=== PATIENT | female | born 2000 | race Two or more races ===

== ENCOUNTER 2019-04-16 20:54 | Emergency (ER) | payer BC ==
[2019-04-16] MEDS ORDERED: ACETAMINOPHEN 325 MG TABLET PO ONE (21:15)
[2019-04-16] MEDS ORDERED: CEFTRIAXONE 1 GM/D5W RTU 1 GM/50 ML RTUPB IV ONE ×2 (21:15→22:17)
[2019-04-16] MEDS ORDERED: NORMAL SALINE 1000 ML 1,000 ML IV ONE (21:15)
[2019-04-16] MEDS ORDERED: KETOROLAC TROMETHAMINE INJ/PF 30 MG/1 ML SDV IV ONE (21:17)
--- NOTE | 2019-04-16 21:29 | ER Document Report ---
ED Skin Rash/Insect Bite/Abscs - General Chief Complaint: Cyst Stated Complaint: PAINFUL CYST Time Seen by Provider: 04/16/19 21:18 Mode of Arrival: Ambulatory Information source: Patient TRAVEL OUTSIDE OF THE [place] IN LAST 30 DAYS: No - HPI Patient complains to provider of: Tender/swollen area Notes: Patient here with complaints of tender swollen area to the top of her gluteal cleft. She had a pilonidal cyst that was surgically removed approximately 2 years ago. She states that it has grown back. States that a few days ago started noticing some swelling to the area, yesterday it started to become painful and today became more painful. The pain is constant, moderate to severe, worse with touching the area or lying on her back. She also states that she started developing a fever yesterday. No nausea, vomiting, diarrhea. No difficulty breathing or swallowing. No chest pain or shortness of breath. No other rashes. No abdominal pain. She does complain of feeling a little dizzy at times. No syncope. No dysuria or hematuria. No other complaints at this time. - Related Data Allergies/Adverse Reactions: No Known Allergies Allergy (Unverified 04/16/19 21:47) Past Medical History - Social History Smoking Status: Unknown if Ever Smoked Family History: Reviewed & Not Pertinent Review of Systems - Review of Systems -: Yes All other systems reviewed and negative Physical Exam - Vital signs Vitals: Temp Pulse Resp BP Pulse Ox 101.7 F H 115 H 20 116/69 98 04/16/19 20:59 04/16/19 20:59 04/16/19 20:59 04/16/19 20:59 04/16/19 20:59 - Notes Notes: GENERAL: alert, cooperative, nontoxic, no distress. HEAD: normocephalic, atraumatic EYES: conjunctiva pink without discharge, no external redness or swelling. EARS: no external swelling, no external redness NOSE: atraumatic, no external swelling MOUTH/THROAT: mucous membranes moist and pink, posterior pharynx without erythem a, swelling, exudate. No trismus or drooling. NECK: soft, supple, full range of motion, no meningismus. CHEST: no distress, lungs clear and equal throughout. No wheezing, rales, rhonchi. CARDIAC: regular rhythm, mild tachycardia, no murmur, normal capillary refill, normal pulses. No peripheral edema noted. ABDOMEN: Soft, nontender. BACK: full range of motion, no CVA tenderness. EXTREMITIES: full range of motion of all extremities. No redness, no swelling. NEURO: alert and oriented x 3, no focal deficits, full range of motion of all extremities. PYSCH: appropriate mood, affect. Patient is cooperative. SKIN: pink, warm, dry, no rash. Large fluctuant pilonidal abscess on the right of the gluteal cleft. No active drainage. Tenderness to palpation. Course - Re-evaluation Re-evalutation: 04/16/19 23:29 Patient is nontoxic-appearing. When patient arrived she was here with complaints of possible pilonidal abscess with fever. She was noted to be febrile and tachycardic, therefore sepsis protocol was initiated. She is noted to have a slightly elevated white blood cell count. Lactate is normal, and VBG is normal. The remainder of her labs are all unremarkable. I do not believe that the patient is septic. She certainly not in septic shock as she is not hypotensive. She was given a liter of normal saline as well as dose of Rocephin. She had an I&D performed on the pilonidal abscess. We will repeat vital signs to ensure that her vitals have improved. Again, at this point the patient does not appear to have septic shock and I believe she can be discharged home with prescription for Bactrim and Keflex as well as some pain medication. She will be instructed to follow-up with her primary care doctor as well as a general surgeon at the next available appointment and she should return immediately to the emergency department if she develops any worsening symptoms, high fever, passes out, persistent vomiting, or has any further concerns. The patient's emergency department workup and current diagnosis were explained to the patient and or family. Follow-up instructions were provided. Medications if prescribed were discussed. Instructions for when to return to the emergency department including specific worrisome symptoms were discussed with the patient and/or family. - Vital Signs Vital signs: Temp Pulse Resp BP Pulse Ox 101.7 F H 115 H 20 116/69 98 04/16/19 20:59 04/16/19 20:59 04/16/19 20:59 04/16/19 20:59 04/16/19 20:59 - Laboratory Result Diagrams: 04/16/19 21:28 04/16/19 21:28 Laboratory results interpreted by me: 04/16/19 04/16/19 04/16/19 21:28 21:28 21:28 WBC 12.3 H Hgb 11.7 L MCV 76 L MCH 23.8 L MCHC 31.4 L RDW 15.3 H Absolute Neutrophils 8.3 H VBG pH 7.44 H VBG pCO2 32.6 L Urine Ketones TRACE H Urine Urobilinogen 4.0 H Ur Leukocyte Esterase SMALL H Discharge - Discharge Clinical Impression: Pilonidal abscess Condition: Stable Disposition: HOME, SELF-CARE Instructions: Post Incision and Drainage, Oral Narcotic Medication ([facility]), Abscess ([facility]) Additional Instructions: Take medications as prescribed. Apply warm compresses to the sore area. Follow-up with primary care or general surgeon at the next available appointment. Return the emergency department immediately for any worsening pain, persistent vomiting, or for any further concerns. Prescriptions: Cephalexin Monohydrate [Keflex 500 mg Capsule] 500 mg PO Q6H #40 capsule Hydrocodone/Acetaminophen [[place] 5-325 mg Tablet] 2 tab PO Q6H PRN #15 tab PRN Reason: Sulfamethoxazole/Trimethoprim [Bactrim Ds Tablet] 1 each PO BID #20 tablet Forms: Smoking Cessation Education, Return to Work Referrals: [facility] [Provider Group] - Follow up as needed NAS MARCH MD [ALINE NICKERSON] - Follow up as needed
[2019-04-16 21:52] LABS: ABSOLUTE LYMPHOCYTES (AUTO) 3.2 10^3/uL (0.5-4.7); ABSOLUTE MONOCYTES (AUTO) 0.8 10^3/uL (0.1-1.4); ABSOLUTE NEUT (AUTO) 8.3 10^3/uL (1.7-8.2); BASOPHILS % (AUTO) 0.2 % (0-2); EOSINOPHILS % (AUTO) 0.3 % (0-6); HEMATOCRIT 37.3 % (36.0-47.0); HEMOGLOBIN 11.7 g/dL (12.0-15.5); LYMPHOCYTES % (AUTO) 25.7 % (13-45); MEAN CORPUSCULAR HEMOGLOBIN 23.8 pg (27.0-33.4); MEAN CORPUSCULAR HGB CONC 31.4 g/dL (32.0-36.0); MEAN CORPUSCULAR VOLUME 76 fl (80-97); MONOCYTES % (AUTO) 6.3 % (3-13); PLATELET COUNT 259 10^3/uL (150-450); RED BLOOD COUNT 4.93 10^6/uL (3.72-5.28); RED CELL DISTRIBUTION WIDTH 15.3 % (11.5-14.0); SEGMENTED NEUTROPHILS % (AUTO) 67.5 % (42-78); TOTAL CELLS COUNTED % (AUTO) 100 %; VENOUS BLOOD HCO3 21.5 mmol/L (20-32); VENOUS BLOOD PCO2 32.6 mmHg (35-63); VENOUS BLOOD PH 7.44 (7.30-7.42); WHITE BLOOD COUNT 12.3 10^3/uL (4.0-10.5)
[2019-04-16 21:56] LABS: APPEARANCE,URINE CLEAR; BILIRUBIN,URINE NEGATIVE (NEGATIVE); COLOR,URINE YELLOW; GLUCOSE, URINE NEGATIVE (NEGATIVE); KETONES,URINE TRACE mg/dL (NEGATIVE); LEUKOCYTE ESTERASE,URINE SMALL (NEGATIVE); NITRITE,URINE NEGATIVE (NEGATIVE); PROTEIN,URINE NEGATIVE (NEGATIVE); URINE SPECIFIC GRAVITY 1.013
[2019-04-16 22:01] LABS: INTERNATIONAL RATION (INR) 1.02; PROTHROMBIN TIME 13.9 SEC (11.4-15.4)
[2019-04-16 22:09] LABS: ALANINE AMINOTRANSFERASE 19 U/L (9-52); ALBUMIN 4.3 g/dL (3.5-5.0); ALKALINE PHOSPHATASE 89 U/L (38-126); ANION GAP 12 (5-19); ASPARTATE AMINO TRANSFERASE 29 U/L (14-36); BILIRUBIN,DIRECT 0.2 mg/dL (0.0-0.4); BILIRUBIN,TOTAL 1.3 mg/dL (0.2-1.3); BLOOD UREA NITROGEN 8 mg/dL (7-20); CALCIUM 9.4 mg/dL (8.4-10.2); CARBON DIOXIDE 23 mmol/L (22-30); CHLORIDE 105 mmol/L (98-107); GLUCOSE 99 mg/dL (75-110); TOTAL PROTEIN 7.9 g/dL (6.3-8.2)
--- NOTE | 2019-04-16 22:10 | RADIOLOGY REPORT (SQ) ---
EXAM DESCRIPTION: XR CHEST 1 VIEW COMPLETED DATE/TME: 04/16/2019 21:16 CLINICAL HISTORY: 19 years, Female, FEVER, SEPSIS COMPARISON: None. NUMBER OF VIEWS: One TECHNIQUE: Single frontal view of the chest was obtained. LIMITATIONS: None. FINDINGS: Cardiac and mediastinal contours are normal in appearance. Lungs are clear. No pleural effusion or pneumothorax. IMPRESSION: No acute disease. copyright 2010 [email or web address]- All Rights Reserved
[2019-04-16] MEDS ORDERED: LIDOCAINE 1% INJ-PF (10 MG/ML) 30 ML SDV INJ ONE (22:37)
[2019-04-16] MEDS ORDERED: HYDROCODONE/ACETAMINOPHEN 5-325 MG TABLET PO ONE (23:30)
[2019-04-16 23:47] VITALS: BP 104/62
== END 2019-04-16 23:58 | disposition home or self-care (01) ==
LOC: ER 20:54
DX: L05.01 Pilonidal cyst with abscess (principal)
CPT/HCPCS: 99283; 96361; 96375; 96365; 36415; 87040; 87086; 84703; 85025; 85610; 80053; 81001; 82803; 83605; 71045; J1885; J7030; J0696

== ENCOUNTER 2019-07-26 14:57 | Emergency (ER) | payer BC ==
[2019-07-26 15:51] LABS: APPEARANCE,URINE CLOUDY; BILIRUBIN,URINE NEGATIVE (NEGATIVE); COLOR,URINE YELLOW; GLUCOSE, URINE NEGATIVE (NEGATIVE); KETONES,URINE NEGATIVE (NEGATIVE); LEUKOCYTE ESTERASE,URINE LARGE (NEGATIVE); NITRITE,URINE NEGATIVE (NEGATIVE); PROTEIN,URINE NEGATIVE (NEGATIVE); URINE SPECIFIC GRAVITY 1.019; UROBILINOGEN,URINE NEGATIVE mg/dL (<2.0)
[2019-07-26 16:03] LABS: URINE AMPHETAMINES SCREEN NEGATIVE; URINE BARBITURATES SCREEN NEGATIVE; URINE BENZODIAZEPINES SCREEN NEGATIVE; URINE MARIJUANA (THC) SCREEN NEGATIVE; URINE METHADONE SCREEN NEGATIVE; URINE PHENCYCLIDINE SCREEN NEGATIVE
[2019-07-26 16:16] LABS: URINE COCAINE SCREEN NEGATIVE
[2019-07-26 16:17] LABS: ABSOLUTE EOSINOPHILS # (AUTO) 0.1 10^3/uL (0.0-0.6); ABSOLUTE LYMPHOCYTES (AUTO) 2.2 10^3/uL (0.5-4.7); ABSOLUTE MONOCYTES (AUTO) 0.5 10^3/uL (0.1-1.4); ABSOLUTE NEUT (AUTO) 6.3 10^3/uL (1.7-8.2); BASOPHILS % (AUTO) 0.4 % (0-2); HEMATOCRIT 36.7 % (36.0-47.0); HEMOGLOBIN 12.1 g/dL (12.0-15.5); LYMPHOCYTES % (AUTO) 24.1 % (13-45); MEAN CORPUSCULAR HEMOGLOBIN 25.1 pg (27.0-33.4); MEAN CORPUSCULAR HGB CONC 32.9 g/dL (32.0-36.0); MEAN CORPUSCULAR VOLUME 76 fl (80-97); MONOCYTES % (AUTO) 5.4 % (3-13); PLATELET COUNT 254 10^3/uL (150-450); RED BLOOD COUNT 4.82 10^6/uL (3.72-5.28); RED CELL DISTRIBUTION WIDTH 15.1 % (11.5-14.0); SEGMENTED NEUTROPHILS % (AUTO) 69.1 % (42-78); TOTAL CELLS COUNTED % (AUTO) 100 %; WHITE BLOOD COUNT 9.1 10^3/uL (4.0-10.5)
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
[2019-07-26 16:40] LABS: ACETAMINOPHEN 12 ug/mL (10-30); ALBUMIN 4.8 g/dL (3.5-5.0); ALKALINE PHOSPHATASE 94 U/L (38-126); ANION GAP 12 (5-19); ASPARTATE AMINO TRANSFERASE 23 U/L (14-36); BILIRUBIN,DIRECT 0.3 mg/dL (0.0-0.4); BILIRUBIN,TOTAL 0.8 mg/dL (0.2-1.3); BLOOD UREA NITROGEN 10 mg/dL (7-20); CALCIUM 9.9 mg/dL (8.4-10.2); CARBON DIOXIDE 26 mmol/L (22-30); CHLORIDE 103 mmol/L (98-107); GLUCOSE 95 mg/dL (75-110); POTASSIUM 3.8 mmol/L (3.6-5.0)
[2019-07-26 16:48] LABS: ALCOHOL < 10 mg/dL (NONE DETECTED); SALICYLATE < 1.0 mg/dL (2.0-20.0)
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
[2019-07-26] MEDS ORDERED: LORAZEPAM 1 MG TABLET PO PRN (19:32)
[2019-07-26] MEDS: OLANZAPINE 2.5 MG TABLET PO SCH (19:49)
--- NOTE | 2019-07-27 08:58 | PSYCHOLOGICAL NOTE ---
Psych Note - Psych Note Date seen by psych provider: 07/27/19 Time seen by psych provider: 08:30 Psych Note: Reason For Consult: Intentional overdose Consent Permissions: 19-year-old female presents emergency department after a suicide attempt by overdose. Patient states that she was feeling very sad all day long so she was sent home from work and then she felt very angry so she decided that she wanted to so she took the and of 2 bottles of medication. Check in conducted with patient: Patient reports that she is feeling "good" however mood and affect are flat. she confirms she intentionally overdosed however is unable to provide a trigger. She reports she intentionally overdosed 5 years ago however did not seek medical school assistance or follow-up with mental health services. Patient currently does not have any outpatient mental health services. Patient is alert and orientated to person, place, time and circumstance. Mood and affect is flat. Patient endorses suicidal ideation with intentional overdose. Patient denies homicidal ideation. Delusions are absent and behaviors congruent with an intact reality based presentation i.e. organized and linear thought process. Eye contact is well-maintained. Conversational speech is within normal rate, tone and prosody. Intellectual abilities appear to be within the average range. Attention and concentration are fair. Insight, judgment, impulse control are poor. Diagnosis: Posttraumatic stress disorder per history provided by patient Medication recommendations per [facility]'s contracted psychiatrist Dr. Linh BYRD are as follows Zyprexa 2.5 mg twice daily Impression\\plan: Patient is recommended to continue under IVC. Patient continues to present with flat affect and is unable or unwilling to identify triggers. Patient reports history of intentional overdose 5 years ago in which she never followed up with mental health treatment. Medication recommendations have been provided. Dr. Gaviria was consulted to care management of this patient; attending physicians in agreement with recommendations and disposition.
[2019-07-27] MEDS: OLANZAPINE 2.5 MG TABLET PO SCH ×2 (10:50→18:33)
--- NOTE | 2019-07-27 14:21 | EKG REPORT ---
SEVERITY:- BORDERLINE ECG - SINUS RHYTHM BORDERLINE T ABNORMALITIES, DIFFUSE LEADS : Confirmed by: Lou Tripathi 27-Jul-2019 14:20:56
--- NOTE | 2019-07-27 18:17 | ER Document Report ---
Doctor's Note Notes: 07/27/19 18:16 Chart reviewed, case discussed with Rony Clark. Patient will remain on IVC petition and receive Zyprexa 2.5 mg twice daily. She will be reevaluated tomorrow morning. The urine culture will be checked tomorrow to see if there is an ID, will start antibiotics based on what the culture shows. 07/28/19 12:18 The urine culture was checked today, and grew mixed urogenital rodo. There is no need for antibiotics. Patient remains on IVC petition.
[2019-07-28] MEDS: OLANZAPINE 2.5 MG TABLET PO SCH (09:32)
--- NOTE | 2019-07-28 13:55 | PSYCHOLOGICAL NOTE ---
Psych Note - Psych Note Date seen by psych provider: 07/28/19 Time seen by psych provider: 13:05 Psych Note: Reason For Consult: Intentional overdose Consent Permissions:Geovanna [phone] is patient's best friend, lived with her when she first moved to [facility]. 19-year-old female presents emergency department after a suicide attempt by overdose. Patient states that she was feeling very sad all day long so she was sent home from work and then she felt very angry so she decided that she wanted to so she took the and of 2 bottles of medication. Check in conducted with patient: Patient presents with improved affect as evidenced by smiling and engaging with clinician. Patient identifies needing to go to outpatient mental health services and agrees to go to therapy. Patient denies wanting to harm herself or others. Patient disclosed having "a lot on her plate and was just triggered." Clinician spoke with patient's friend Geovanna. She agrees to be part of patient's plan of care i.e. no access to medications weapons since follow through with mental health recommendations. She disclosed she has no further concerns with the patient returning home and identifies her previous conversation last night with the patient went well with the patient presenting "like Geovanna." Diagnosis: Posttraumatic stress disorder per history provided by patient Medication recommendations per [facility]'s contracted psychiatrist Dr. Linh BYRD are as follows Zyprexa 2.5 mg twice daily Impression\\plan: Patient is recommended for rescind of IVC and is cleared from acute psychiatric services. Patient friend Geovanna agrees with part of patient's plan of care. Medication recommendations have been provided. Patient is recommended to follow-up with outpatient mental health services and both medication management and therapeutic services. Patient denies continued suicid al ideation and has significant improvement in presentation as evidenced by smiling engaging with clinician. Patient was provided local resource list of area providers including mobile crisis contact information. Dr. Gaviria was consulted to care management of this patient; attending physicians in agreement with recommendations and disposition.
[2019-07-28 15:00] VITALS: BP 112/70
== END 2019-07-28 15:01 | disposition home or self-care (01) ==
LOC: ER 14:57
DX: T50.902A Poisoning by unspecified drugs, medicaments and biological substances, intentional self-harm, initial encounter (principal); T36.8X2A Poisoning by other systemic antibiotics, intentional self-harm, initial encounter; R53.83 Other fatigue; F17.200 Nicotine dependence, unspecified, uncomplicated
CPT/HCPCS: 93005; 99285; 36415; 87086; 80307 ×4; 84703; 85025; 80053; 81001; 93010; J3490 ×3